=== PATIENT | female | born 1985 | race Caucasian/White ===

== ENCOUNTER 2021-09-02 15:45 | Emergency (ER) | payer OTHER, SELFPAY ==
[2021-09-02 15:57] VITALS: BP 133/83; PULSE 105; RESP 16; TEMP 36.3; O2SAT 100
--- NOTE | 2021-09-02 16:01 | ED.ABDPAIN ---
HPI - Abdominal Pain General Chief Complaint: Urogenital-Female Stated Complaint: ABD PAIN Time Seen by Provider: 09/02/21 16:03 Source: patient Mode of arrival: ambulatory Limitations: no limitations History of Present Illness HPI narrative: 36-year-old female presented for complaints of mid lower abdominal pain, onset yesterday. Endorses burning with urination. She denies associated hematuria, flank pain, nausea, vomiting, diarrhea, fever or chills. She is taking Azo for symptoms. Taking ibuprofen which helps the pain. She denies vaginal discharge or concern for STD. History of appendectomy. LMP 2 weeks ago, no concern for . Related Data Allergies Allergy/AdvReac Type Severity Reaction Status Date / Time amoxicillin Allergy Unknown Verified 09/26/10 10:53 Penicillins Allergy Unknown Verified 09/21/10 14:47 AMOXICILLIN TRIHYDRATE Allergy Mild HIVES Uncoded 07/01/14 11:44 Review of Systems Review of Systems: CONSTITUTIONAL: Denies body aches, fever, chills, or sweats. EYES: Denies visual changes, redness, or discharge. ENT: Denies rhinorrhea, congestion, sore throat, or otalgia. CARDIOVASCULAR: Denies chest pain, palpitations, or edema. RESPIRATORY: Denies cough or dyspnea. GASTROINTESTINAL: Endorses abdominal pain denies nausea, vomiting, diarrhea, hematochezia, melena GENITOURINARY: endorses dysuria SKIN: Denies rash, itching, or wounds. MUSCULOSKELETAL: Denies back pain, joint pain, or myalgia. NEUROLOGIC: Denies headache, numbness, tingling, or weakness. PSYCH: Denies depression or anxiety. All systems reviewed & are unremarkable except as noted in HPI and below PMFSH Family History Family History Other Family history of hypercholesterolemia Family history of thyroid disease Social History Social History Alcohol intake: current Comments At time of signature, I have reviewed and agree with nursing past medical, surgical, social and family history unless otherwise noted. Please see nursing chart for further information. There is no relevant family history pertinent to the presenting complaint Exam Narrative: GENERAL: Well-appearing, well-nourished, and in no acute distress. HEAD: Normocephalic, atraumatic. EYES: EOMI. No redness or drainage. Conjunctivae normal. ENT: Mucous membranes pink and moist. NECK: Normal AROM. CHEST: No respiratory distress. Clear to auscultation. HEART: Regular rate and rhythm. No murmur appreciated. Normal peripheral pulses. ABDOMEN: Tender abdomen: mid lower and LLQ, endorses pressure when laying back; No guarding, rebound tenderness; abd soft, nondistended, normal active bowel sounds. MUSCULOSKELETAL: No bony tenderness. no CVA tenderness EXTREMITIES: Normal range of motion. No edema. SKIN: Warm, dry, no rash. Capillary refill normal. Normal skin turgor. NEURO: No focal deficits. Alert and oriented x3. PSYCH: Normal affect. Course Course Emergency Course: Urine reviewed with pt, taking AZO. We discussed possible etiologies of her lower abdominal pain, including surgical emergency such as ovarian torsion, versus other. Advised to go to the ER for further evaluation. Patient would like to monitor her symptoms while taking an antibiotic, if symptoms worsen she will go to the emergency room. She is aware of the risk of worsening condition, infection, and . Pt states I don't worry about my ovaries because I don't want to have any kids. Patient is aware of diagnosis, understands and agrees to treatment plan. Anticipatory guidance given. Patient agrees to follow-up as directed and is aware of reasons to seek care at the emergency department. Portions of this record may have been created with voice recognition software Level of Care: Express Care Visit Vital Signs Vital signs: Vital Signs Temperature 97.4 F L 09/02/21 15:57 Pulse Rate
== END 2021-09-02 16:24 | disposition home or self-care (01) ==
PROVIDERS: Emergency Provider Nurse Practitioner Family
DX: R10.30 Lower abdominal pain, unspecified (principal)
CPT/HCPCS: 81003; 87086; 99203; G0463

== ENCOUNTER 2022-03-15 08:32 | Emergency (ER) | payer OTHER, SELFPAY ==
[2022-03-15 08:42] VITALS: BP 123/92; PULSE 114; RESP 16; TEMP 36.6; O2SAT 98
--- NOTE | 2022-03-15 08:48 | ED.URI ---
HPI - URI/Sore Throat General Chief Complaint: Upper Respiratory Infection Stated Complaint: fever, cough, eye irritation Time Seen by Provider: 03/15/22 08:49 Source: patient, RN notes reviewed and old records reviewed Mode of arrival: ambulatory Limitations: no limitations History of Present Illness HPI Narrative: 36-year-old female who presents to [facility] care with complaints of cough for 3 days with some wheezing noted and clear to white mucous production. Patient reports that she started with rash all over this morning denies any sore throat but states has metallic taste in her mouth. Patient also has redness with drainage and crusting to her left eye for the past 2 days with fevers up to 101F for the past 2 days also. patient reports that she has been taking DayQuil and NyQuil for her symptoms. MD elicited complaint: fever, cough, rhinorrhea, nasal congestion and other (left eye redness and drainage) Onset (ago): day(s) (3) Able to tolerate fluids by mouth: Yes Treatments prior to arrival: cold medicine (Dayquil and NyQuil) Related Data Allergies Allergy/AdvReac Type Severity Reaction Status Date / Time amoxicillin Allergy Mild Unknown Verified 01/03/22 14:16 Penicillins Allergy Mild Unknown Verified 01/03/22 14:16 AMOXICILLIN TRIHYDRATE Allergy Mild HIVES Uncoded 01/03/22 14:16 Review of Systems Review of Systems: CONSTITUTIONAL: Positive for fever, chills, or sweats. EYES: Denies visual changes,positive fro left eye redness, and discharge. ENT: positive for rhinorrhea, congestion, no acute sore throat, no otalgia. CARDIOVASCULAR: Denies chest pain, palpitations, or edema. RESPIRATORY: Positive for cough denies dyspnea positive for some wheezing GASTROINTESTINAL: Denies abdominal pain, nausea, vomiting, or diarrhea. GENITOURINARY: Denies dysuria or hematuria. SKIN: Positive for diffuse red scattered rash or itching. MUSCULOSKELETAL: Denies back pain, joint pain, or myalgia. NEUROLOGIC: Denies headache, numbness, or weakness. PSYCHIATRIC: Denies anxiety or depression. All systems reviewed & are unremarkable except as noted in HPI and below PMFSH Past Medical History Medical History Cervical high risk HPV (human papillomavirus) test positive History of genital warts 2002 Surgical History Surgical History S/P appendectomy Family History Family History Other Family history of hypercholesterolemia Family history of thyroid disease Social History Social History (Updated 03/15/22 @ 12:24 by Radha Londono NP) Smoking packs per day: 0.5 Smoking cigarettes per day: 10.0 Years smoked: 10 Smoking pack-years: 5.00 Smoking status: Former smoker Tobacco type: cigarettes Additional smoking assessment comments: Quit 7 years ago Alcohol intake: current Alcohol use details: social Substance use: never Substance use type: does not use Living arrangements: with family Gender identity (if verbalized by the patient): Female Comments At time of signature, agree with nursing past medical, surgical, social and family history. There is no relevant family history pertinent to the presenting complaint Exam Narrative: GENERAL: Well-appearing, well-nourished, and in no acute distress. HEAD: Normocephalic, atraumatic. EYES: PERRLA and EOMI.left sclera and conjunctiva red with yellow drainage noted from inner cantus some crusting on lashes ENT: Nares with mild redness with clear rhinorrhea no staxis. Mucous membranes moist.TM's normal with good light reflex, throat red with white lesions on tonsils and mild swelling with post nasal drainage noted. NECK: Supple. no lymphadenopathy CHEST: Faint scattered wheezes on auscultation. No respiratory distress.no tachypnea noted, SAO2 98% on room air HEART: Regular rate and rhythm. No murmur
== END 2022-03-15 09:25 | disposition home or self-care (01) ==
PROVIDERS: Emergency Provider Registered Nurse; PCP Internal Medicine
DX: J40 Bronchitis, not specified as acute or chronic (principal); J03.90 Acute tonsillitis, unspecified; H10.32 Unspecified acute conjunctivitis, left eye; Z87.891 Personal history of nicotine dependence
CPT/HCPCS: 87081; 87880; 99213; G0463

== ENCOUNTER 2022-03-17 09:58 | Emergency (ER) | payer OTHER, SELFPAY ==
--- NOTE | ~2022-03-17 | XR_ITS ---
EXAMINATION: XR chest 2V DATE: 03/17/2022 10:32 INDICATION: Cough and fever TECHNIQUE: PA and lateral views of the chest are obtained. COMPARISON: None available FINDINGS: There are airspace opacities of the lingula and left lower lobe. No pleural effusion or pne umothorax. The cardiomediastinal silhouette is normal. There is mild thoracic spondylosis. IMPRESSION: 1. Lingular and left lower lobe opacities, likely pneumonia. Recommend followup radiographs in 10-14 days after appropriate therapy to evaluate for improvement/resolution. Reviewed, dictated and finalized at location A. IMPRESSION: 1. Lingular and left lower lobe opacities, likely pneumonia. Recommend followup radiographs in 10-14 days after appropriate therapy to evaluate for improvemen t/resolution.
[2022-03-17 10:04] VITALS: BP 140/90; PULSE 122; RESP 18; TEMP 36.3; O2SAT 97
--- NOTE | 2022-03-17 10:04 | ED.URI ---
HPI - URI/Sore Throat General Chief Complaint: Upper Respiratory Infection Stated Complaint: HOT FLASHES/CHILLS/FEVER Time Seen by Provider: 03/17/22 10:04 Source: patient Mode of arrival: ambulatory Limitations: no limitations History of Present Illness HPI Narrative: Ms. Escalona is a 36-year-old female patient presenting to the clinic today with complaints of chills, fever, and hot flashes x5 days She was seen 2 days ago and diagnosed with tonsillitis, bronchitis, and conjunctivitis. She was given antibiotic eyedrops as well as some an albuterol inhaler, azithromycin and prednisone for her symptoms. States her temperature was as high as 103F today. Still having cough but it is not very productive. She has taken 3 doses of her azithromycin and prednisone. Also reports that her throat pain, rash, and eye issues are improving. Would like to get an x-ray to r/o pneumonia. Has completed COVID testing and it was negative. MD elicited complaint: fever, cough and sore throat Related Data Allergies Allergy/AdvReac Type Severity Reaction Status Date / Time amoxicillin Allergy Mild Unknown Verified 01/03/22 14:16 Penicillins Allergy Mild Unknown Verified 01/03/22 14:16 AMOXICILLIN TRIHYDRATE Allergy Mild HIVES Uncoded 01/03/22 14:16 Review of Systems Review of Systems: Pertinent positives per HPI. Patient denies any headache, visual changes, dizziness, shortness of breath, chest pain, palpitations, nausea, vomiting, diarrhea, constipation, abdominal pain, or any urinary issues. PMF Past Medical History Medical History Cervical high risk HPV (human papillomavirus) test positive History of genital warts 2002 Surgical History Surgical History S/P appendectomy Family History Family History Other Family history of hypercholesterolemia Family history of thyroid disease Social History Social History Smoking packs per day: 0.5 Smoking cigarettes per day: 10.0 Years smoked: 10 Smoking pack-years: 5.00 Smoking status: Former smoker Tobacco type: cigarettes Additional smoking assessment comments: Quit 7 years ago Alcohol intake: current Alcohol use details: social Substance use: never Substance use type: does not use Gender identity (if verbalized by the patient): Female Comments At the time of my signature, I reviewed and agree with the nursing past medical, surgical, social, and family history. There is no relevant family history pertinent to the patient complaint. Exam Narrative: General: Well-developed, well nourished, in no apparent distress Head: Normocephalic, atraumatic Eyes: Pupils equally round and reactive to light bilaterally, EOM intact, sclera and conjunctive clear, no discharge, lids normal Ears: TMs intact and clear, ear canals clear, no drainage, grossly hearing normal. Nose: Nares patent, clear nasal discharge, no inflammation, no sinus tenderness. Mouth: Oral pharynx without lesions or masses, good dentition, MMM. Oropharynx midly red with mild enlargement of tonsils, PND Neck: Supple, trachea midline, no enlargement of anterior or posterior cervical nodes, no thyroid masses or goiter palpable. Cardio: Regular rate and rhythm, s1 and s2 normal, no murmur appreciated. Resp:Faint inspiratory crackles over the left lower lobe, no rhonchi, wheezing or rubs Skin: Morbilliform appearing rash all over her body- denies itching or pain, rash is blanchable. Course Course Emergency Course: Portions of this record may have been created with voice recognition software. Level of Care: Express Care Visit Vital Signs Vital signs: Vital Signs Temperature 36.3 C L 03/17/22 10:04 Pulse Rate 122 H 03/17/22 10:04 Respiratory Rate 18 0
== END 2022-03-17 11:05 | disposition home or self-care (01) ==
PROVIDERS: Emergency Provider Nurse Practitioner Family; PCP Internal Medicine
DX: R21 Rash and other nonspecific skin eruption (principal); J18.1 Lobar pneumonia, unspecified organism; Z87.891 Personal history of nicotine dependence
CPT/HCPCS: 36416; 71046; 86308; 99213; G0463

== ENCOUNTER 2022-09-30 08:05 | Emergency (ER) | payer OTHER, SELFPAY ==
--- NOTE | 2022-09-30 08:11 | ED.URI ---
HPI - URI/Sore Throat General Chief Complaint: Upper Respiratory Infection Stated Complaint: SORE THROAT Time Seen by Provider: 09/30/22 08:22 Source: patient and RN notes reviewed Mode of arrival: ambulatory Limitations: no limitations History of Present Illness HPI Narrative: 37-year-old female presents concern for sore throat that came on suddenly yesterday with chills and low-grade temperature. Reports her children have strep throat. She reports she took ibuprofen, denies other [id number] medications for her symptoms. MD elicited complaint: sore throat Related Data Allergies Allergy/AdvReac Type Severity Reaction Status Date / Time amoxicillin Allergy Mild Unknown Verified 09/30/22 08:14 Penicillins Allergy Mild Unknown Verified 09/30/22 08:14 AMOXICILLIN TRIHYDRATE Allergy Mild HIVES Uncoded 09/30/22 08:14 Review of Systems Review of Systems: CONSTITUTIONAL: Reports malaise, chills, low-grade fever. EYES: Denies visual changes, redness, or discharge. ENT: Reports rhinorrhea, sore throat. Denies congestion, sinus pain, otalgia CARDIOVASCULAR: Denies chest pain, palpitations, or edema. RESPIRATORY: Denies cough. Denies dyspnea. GASTROINTESTINAL: Denies abdominal pain, nausea, vomiting, diarrhea SKIN: Denies rash or itching. MUSCULOSKELETAL: Denies myalgia. NEUROLOGIC: Denies headache. All systems reviewed & are unremarkable except as noted in HPI and below PMFSH Past Medical History Medical History Cervical high risk HPV (human papillomavirus) test positive History of genital warts 2002 Surgical History Surgical History S/P appendectomy Family History Family History Other Family history of hypercholesterolemia Family history of thyroid disease Social History Social History Smoking packs per day: 0.5 Smoking cigarettes per day: 10.0 Years smoked: 10 Smoking pack-years: 5.00 Smoking status: Former smoker Tobacco type: cigarettes Additional smoking assessment comments: Quit 7 years ago Alcohol intake: current Alcohol use details: social Substance use: never Substance use type: does not use Living arrangements: with family Gender identity (if verbalized by the patient): Female Comments At time of signature, agree with nursing past medical, surgical, social and family history. There is no relevant family history pertinent to the presenting complaint Exam Narrative: GENERAL: Well-appearing, well-nourished, and in no acute distress. HEAD: Normocephalic EYES: PERRLA, conjunctivae clear ENT: Nares clear, turbinates edematous and erythematous, clear discharge. Mucous membranes moist. TM pearly ballard with sharp light reflex bilaterally; no tragal tenderness. Oropharynx erythematous without lesions. Tonsils enlarged with exudate, no drooling, no hoarseness, no trismus, uvula midline. NECK: Supple. No lymphadenopathy CHEST: Clear to auscultation, breath sounds equal. No wheezing, rhonchi, rales, or stridor. No respiratory distress, speaks in full sentences. HEART: Regular rate and rhythm. No murmur heard. SKIN: Warm, dry, no rash. NEURO: Alert and oriented x3. PSYCH: Normal mood and affect Course Course Emergency Course: Patient is aware of diagnosis, understands and agrees to treatment plan. Anticipatory guidance given. Patient agrees to follow-up as directed and is aware of reasons to seek care at the emergency department. Portions of this record may have been created with voice recognition software Level of Care: Express Care Visit Vital Signs Vital signs: Reviewed. MDM - URI/Sore Throat MDM Narrative Medical decision making narrative: Differential diagnosis considered: Boyd virus, strep pharyngitis, allergic rhinitis,
[2022-09-30 08:13] VITALS: BP 130/85; PULSE 110; RESP 16; TEMP 36.3; O2SAT 99
== END 2022-09-30 08:38 | disposition home or self-care (01) ==
PROVIDERS: Emergency Provider Nurse Practitioner; PCP Internal Medicine
DX: J02.0 Streptococcal pharyngitis (principal); Z87.891 Personal history of nicotine dependence
CPT/HCPCS: 87880; 99213; G0463

== ENCOUNTER 2023-01-29 08:04 | Emergency (ER) | payer OTHER, SELFPAY ==
--- NOTE | 2023-01-29 08:15 | ED.URI ---
HPI - URI/Sore Throat General Chief Complaint: Upper Respiratory Infection Stated Complaint: SORE THROAT Time Seen by Provider: 01/29/23 08:35 Source: patient and RN notes reviewed Mode of arrival: ambulatory Limitations: no limitations History of Present Illness HPI Narrative: 37-year-old female presents with concern for sore throat. She reports her son had similar symptoms for the past several days, she started feeling sick this morning. She reports general body aches. She denies fever, chills, sweats, nasal congestion, rhinorrhea. She has not taken any medications for her symptoms. MD elicited complaint: sore throat Related Data Allergies Allergy/AdvReac Type Severity Reaction Status Date / Time amoxicillin Allergy Mild Unknown Verified 01/29/23 08:40 Penicillins Allergy Mild Unknown Verified 01/29/23 08:40 AMOXICILLIN TRIHYDRATE Allergy Mild HIVES Uncoded 01/29/23 08:40 Review of Systems Review of Systems: CONSTITUTIONAL: Denies malaise, chills, sweats, or fever. EYES: Denies visual changes, redness, or discharge. ENT: Reports rhinorrhea, congestion, sinus pain, otalgia. Reports sore throat. CARDIOVASCULAR: Denies chest pain, palpitations, or edema. RESPIRATORY: Denies cough. Denies dyspnea. GASTROINTESTINAL: Denies abdominal pain, nausea, vomiting, diarrhea SKIN: Denies rash or itching. MUSCULOSKELETAL: Denies myalgia. NEUROLOGIC: Denies headache. All systems reviewed & are unremarkable except as noted in HPI and below PMFSH Past Medical History Medical History Cervical high risk HPV (human papillomavirus) test positive History of genital warts 2002 Surgical History Surgical History S/P appendectomy Family History Family History Other Family history of hypercholesterolemia Family history of thyroid disease Social History Social History Smoking packs per day: 0.5 Smoking cigarettes per day: 10.0 Years smoked: 10 Smoking pack-years: 5.00 Smoking status: Former smoker Tobacco type: cigarettes Additional smoking assessment comments: Quit 7 years ago Alcohol intake: current Alcohol use details: social Substance use: never Substance use type: does not use Current Housing: Decline to Answer Concerned About Future Housing: Decline to Answer Difficulty Paying Gas/Electric Bills: Decline to Answer Difficulty Paying for Meds: Decline to Answer Currently Unemployed: Decline to Answer Education: Don't Know Difficulty w/ Childcare or Family Care: Decline to Answer Living arrangements: with family Gender identity (if verbalized by the patient): Female Comments At time of signature, agree with nursing past medical, surgical, social and family history. There is no relevant family history pertinent to the presenting complaint Exam Narrative: GENERAL: Well-appearing, well-nourished, and in no acute distress. HEAD: Normocephalic EYES: PERRLA, conjunctivae clear ENT: Nares clear. Mucous membranes moist. TM pearly ballard with dull light reflex bilaterally; no tragal tenderness. Oropharynx erythematous without lesions. Tonsils enlarged and without exudate, no drooling, no hoarseness, no trismus, uvula midline. NECK: Supple. No lymphadenopathy CHEST: Clear to auscultation, breath sounds equal. No wheezing, rhonchi, rales, or stridor. No respiratory distress, speaks in full sentences. HEART: Regular rate and rhythm. No murmur heard. SKIN: Warm, dry, no rash. NEURO: Alert and oriented x3. PSYCH: Normal mood and affect Course Course Emergency Course: Patient is aware of diagnosis, understands and agrees to treatment plan. Anticipatory guidance given. Patient agrees to follow-up as directed and is aware of reasons to seek care at the emergency department.
[2023-01-29 08:20] VITALS: BP 138/98; PULSE 96; RESP 20; TEMP 36.8; O2SAT 99
== END 2023-01-29 08:53 | disposition home or self-care (01) ==
PROVIDERS: Emergency Provider Nurse Practitioner; PCP Internal Medicine
DX: J02.0 Streptococcal pharyngitis (principal); Z87.891 Personal history of nicotine dependence
CPT/HCPCS: 87880; 99213; G0463